=== PATIENT | male | born 1970 | race Hispanic/Latino ===

== ENCOUNTER 2017-11-10 20:52 | Emergency (ER) | payer OTHER ==
[2017-11-10] MEDS ORDERED: IBUPROFEN 400 MG TABLET ONE (21:18)
[2017-11-10] MEDS ORDERED: CYCLOBENZAPRINE HCL 10 MG TABLET ONE (21:18)
== END 2017-11-10 22:20 | disposition home or self-care (01) ==
LOC: EDH 20:52
DX: M54.5 Low back pain (principal); M54.2 Cervicalgia; K21.9 Gastro-esophageal reflux disease without esophagitis; V59.49XA Driver of pick-up truck or van injured in collision with other motor vehicles in traffic accident, initial encounter; Y93.89 Activity, other specified; Y92.89 Other specified places as the place of occurrence of the external cause; Y99.8 Other external cause status
CPT/HCPCS: 72040; 72100